=== PATIENT | female | born 1995 | race African-American/Black ===

== ENCOUNTER 2017-01-08 18:30 | Emergency (ER) | payer BC, MEDICAID ==
[2017-01-08] MEDS ORDERED: ACETAMINOPHEN 325 MG TABLET PO ONE (19:59)
--- NOTE | 2017-01-08 20:06 | ER Document Report ---
HPI - HPI Patient complains to provider of: right great toe pain Onset: This afternoon Onset/Duration: Sudden Severity: Severe Pain Level: 5 Context: Patient presents with right great toe pain. Patient reports she opened a door on her right great toe and the entire toenail lifted up. No other c/o such as f /v/d. Pt is 24 weeks pregant. Denies abd. pain. Associated Symptoms: None Exacerbated by: Movement, Walking Relieved by: Denies Similar symptoms previously: No Recently seen / treated by doctor: No - REPRODUCTIVE Reproductive: DENIES: : - DERM Skin Color: Normal, [place] Past Medical History - General Information source: Patient Last Menstrual Period: 24 weeks - Social History Smoking Status: Current Every Day Smoker Cigarette use (# per day): Yes Frequency of alcohol use: None Drug Abuse: None Occupation: student Family History: CVA Patient has suicidal ideation: No Patient has homicidal ideation: No - Medical History Medical History: Negative Endocrine Medical History: Denies: Hx Diabetes Mellitus Type 1, Hx Diabetes Mellitus Type 2, Hx Graves' Disease, Hx Hyperthyroidism, Hx Hypothyroidism Renal/ Medical History: Denies: Hx Peritoneal Dialysis Past Surgical History: Reports: Hx Abdominal Surgery - umbilical hernia repair, Hx Umbilical Hernia - Immunizations Immunizations up to date: Yes Hx Diphtheria, Pertussis, Tetanus Vaccination: Yes Vertical Provider Document - CONSTITUTIONAL Agree With Documented VS: Yes Exam Limitations: No Limitations General Appearance: WD/WN, Mild Distress - winces when toenail palpated - INFECTION CONTROL TRAVEL OUTSIDE OF THE [place] IN LAST 30 DAYS: No - HEENT HEENT: Atraumatic, Normocephalic - NECK Neck: Supple - RESPIRATORY Respiratory: No Respiratory Distress O2 Sat by Pulse Oximetry: 100 - CARDIOVASCULAR Cardiovascular: Regular Rate - MUSCULOSKELETAL/EXTREMETIES Musculoskeletal/Extremeties: MAEW, FROM, Tender - right great toenail ttp, blood underneath the nail, unable to pull the nail back, brisk cap refill - NEURO Level of Consciousness: Awake, Alert, Appropriate Motor/Sensory: No Motor Deficit - DERM Integumentary: Warm, Dry Adult Front & Back Diagram: 1 - great right toenail pain Course - Re-evaluation Re-evalutation: 01/08/17 20:08 Patient offered Tylenol but declines states she'll take it when she gets home. Patient reports she said she was allergic to tylenol because it doesn't do anything for her at all. 01/08/17 20:42 Xray negative. Patient instructed to protect toe, wear good supporting shoes follow up with primary care provider. Monitor for signs and symptoms of infection. Great toe cleaned well and dressed - Vital Signs Vital signs: Temp Pulse Resp BP Pulse Ox 98.5 F 83 16 112/66 100 01/08/17 19:19 01/08/17 19:19 01/08/17 19:19 01/08/17 19:19 01/08/17 19:19 - Diagnostic Test Radiology reviewed: Image reviewed, Reports reviewed - EXAM DESCRIPTION: TOE RIGHT COMPLETED DATE/TIME: 01/08/2017 8:19 pm REASON FOR STUDY: hit toe with door COMPARISON: None. NUMBER OF VIEWS: Three views. TECHNIQUE: AP, lateral, and oblique images acquired of the right first toe. LIMITATIONS: None. FINDINGS: MINERALIZATION: Normal. BONES: No acute fracture or dislocation. No worrisome bone lesions. JOINTS: No effusions. SOFT TISSUES: No soft tissue swelling. No foreign body. OTHER: No other significant finding. COMMENT: SITE OF TRAUMA/COMPLAINT MARKED/STAMP COMPLETED: No TECHNICAL DOCUMENTATION: JOB ID: [id number]- All Rights Reserved RAD/TOE RIGHT IMPRESSION: NEGATIVE STUDY OF THE RIGHT TOE. NO RADIOGRAPHIC EVIDENCE OF ACUTE INJURY Discharge - Discharge Clinical Impression: right great toenail pain Condition: Stable Disposition: HOME, SELF-CARE Additional Instructions: *You have been evaluated for great toenail pain *Keep the toe protected, wear good supporting shoes *Rest/Ice/Elevate the foot *Take tylenol as indicated for pain *Follow up with your primary care provider for recheck within one week * Monitor for signs and symptoms of infection such as redness swelling warmth or discharge increased pain. *Return to ED for worsening condition, changes, needs Forms: Return to School Referrals: KELSI DE LUNA MD [Primary Care Provider] - Follow up as needed
[2017-01-09 00:40] VITALS: BP 112/68
== END 2017-01-08 20:51 | disposition home or self-care (01) ==
LOC: ER 18:30
DX: O26.92 Pregnancy related conditions, unspecified, second trimester (principal); M79.674 Pain in right toe(s); W20.8XXA Other cause of strike by thrown, projected or falling object, initial encounter; O99.332 Smoking (tobacco) complicating pregnancy, second trimester; F17.210 Nicotine dependence, cigarettes, uncomplicated; Z3A.24 24 weeks gestation of pregnancy
CPT/HCPCS: 99283

== ENCOUNTER 2017-04-23 08:32 | Outpatient (CLI) | payer BC, MEDICAID ==
[2017-04-23 09:06] LABS: APPEARANCE,URINE CLEAR; BILIRUBIN,URINE NEGATIVE (NEGATIVE); GLUCOSE, URINE NEGATIVE (NEGATIVE); KETONES,URINE NEGATIVE (NEGATIVE); LEUKOCYTE ESTERASE,URINE NEGATIVE (NEGATIVE); NITRITE,URINE NEGATIVE (NEGATIVE); PROTEIN,URINE NEGATIVE (NEGATIVE); URINE SPECIFIC GRAVITY 1.017; UROBILINOGEN,URINE NEGATIVE mg/dL (<2.0)
[2017-04-23 09:16] LABS: AMNISURE (ROM) NEGATIVE (NEGATIVE)
[2017-04-23 09:34] LABS: URINE BARBITURATES SCREEN NEGATIVE; URINE METHADONE SCREEN NEGATIVE; URINE OPIATES LOW NEGATIVE; URINE PHENCYCLIDINE SCREEN NEGATIVE
--- NOTE | 2017-04-23 11:11 | RADIOLOGY REPORT (SQ) ---
EXAM DESCRIPTION: U/S PROFILE W/O STRESS COMPLETED DATE/TIME: 04/23/2017 11:01 am REASON FOR STUDY: BPP for non reactive NST COMPARISON: No previous this TECHNIQUE: Limited goldsmith-scale realtime and static images of the fetus to measure specified parameter s. LIMITATIONS: None. FINDINGS: HEART RATE: 140 beats per minute. ELANA: 8.5 cm cm. POSTURE AND TONE: 2 points. MOVEMENT: 2 points. BREATHING MOVEMENT: 2 points. QUALITATIVE ELANA: 2 points. OTHER: No other significant finding. IMPRESSION: BIOPHYSICAL PROFILE: 04/09. Trimester of : Third - 28 weeks to delivery COMMENT: BREATHING MOVEMENTS: 2 POINTS: PRESENT 0 POINTS: ABSENT MOTION: 2 POINTS: PRESENT 0 POINTS: ABSENT TONE: 2 POINTS: PRESENT 0 POINTS: ABSENT AMNIOTIC FLUID VOLUME: 2 POINTS: LARGEST POCKET GREATER THAN 2 CM DEPTH. 0 POINTS: NO POCKET OF 2 CM. TECHNICAL DOCUMENTATION: JOB ID: [id number] [employer]- All Rights Reserved
== END 2017-04-23 11:17 | disposition home or self-care (01) ==
LOC: LC 08:32
PROVIDERS: ATTEND Obstetrics & Gynecology
PROC: 4A1HXCZ Monitoring of Products of Conception, Cardiac Rate, External Approach (ICD-10-PCS; principal; 2017-04-23)
DX: Z36 Encounter for antenatal screening of mother (principal); Z3A.38 38 weeks gestation of pregnancy
CPT/HCPCS: 59025; 76819; 80307; 81005; 84112

== ENCOUNTER 2017-05-04 13:46 | Inpatient (IN) | payer BC, MEDICAID ==
--- NOTE | 2017-05-04 14:07 | Non Stress Test Report ---
Non Stress Test Datetime Report Generated by CPN: 05/04/2017 14:07 DEMOGRAPHIC EGA NST: 38.2 INDICATION Indication for Study: Ordered by Provider MONITORING Monitor Explained: Monitor Explained; Test Explained; Patient Verbalized Understanding Time on Monitor: 04/23/2017 08:47 Time off Monitor: 04/23/2017 10:25 NST Duration: 98 NST INTERVENTIONS NST Interventions: For Biophysical Profile Physician Notified NST: Dr. Michael BABY A: [id number] BABY A Movement : Present Contraction Frequency : occasional FHR Baseline : 145 Accelerations : 10X10 Decelerations : None Variability : Moderate 6-25bpm NST Review: Does Not Meet Criteria for Reactive NST NST Review and Verified By : Channing Turcios RN NST Results: Non-Reactive NST COMMENTS NST Comments: patient sent for BPP, BPP 8/8 NST REPORT Report Trigger: Send Report
[2017-05-04 14:27] LABS: APPEARANCE,URINE CLEAR; BILIRUBIN,URINE NEGATIVE (NEGATIVE); GLUCOSE, URINE NEGATIVE (NEGATIVE); KETONES,URINE NEGATIVE (NEGATIVE); LEUKOCYTE ESTERASE,URINE NEGATIVE (NEGATIVE); NITRITE,URINE NEGATIVE (NEGATIVE); PROTEIN,URINE NEGATIVE (NEGATIVE); URINE SPECIFIC GRAVITY 1.006; UROBILINOGEN,URINE NEGATIVE mg/dL (<2.0)
[2017-05-04 14:48] LABS: URINE BARBITURATES SCREEN NEGATIVE; URINE METHADONE SCREEN NEGATIVE; URINE OPIATES LOW NEGATIVE; URINE PHENCYCLIDINE SCREEN NEGATIVE
[2017-05-04] MEDS ORDERED: PENICILLIN G-K 5 MILLION UNIT VIAL ONE ×3 (15:56→23:36)
[2017-05-04] MEDS ORDERED: PENICILLIN G POTASSIUM 5,000,000 UNIT in DEXTROSE 5%-WATER 100 ML IV ONE (16:00)
[2017-05-04] MEDS: RINGERS SOLUTION,LACTATED 1,000 ML IV PRN ×2 (16:05→18:58)
[2017-05-04 16:10] LABS: ABSOLUTE LYMPHOCYTES (AUTO) 1.6 10^3/uL (0.5-4.7); ABSOLUTE MONOCYTES (AUTO) 0.7 10^3/uL (0.1-1.4); ABSOLUTE NEUT (AUTO) 7.1 10^3/uL (1.7-8.2); BASOPHILS % (AUTO) 0.2 % (0-2); EOSINOPHILS % (AUTO) 0.2 % (0-6); HEMATOCRIT 36.2 % (36.0-47.0); HEMOGLOBIN 12.2 g/dL (12.0-15.5); HGB HCT DIFFERENCE 0.4; MEAN CORPUSCULAR HEMOGLOBIN 30.4 pg (27.0-33.4); MEAN CORPUSCULAR HGB CONC 33.8 g/dL (32.0-36.0); MEAN CORPUSCULAR VOLUME 90 fl (80-97); MONOCYTES % (AUTO) 7.1 % (3-13); RED BLOOD COUNT 4.03 10^6/uL (3.72-5.28); RED CELL DISTRIBUTION WIDTH 13.3 % (11.5-14.0); SEGMENTED NEUTROPHILS % (AUTO) 75.5 % (42-78); WHITE BLOOD COUNT 9.4 10^3/uL (4.0-10.5)
[2017-05-04] MEDS ORDERED: OXYTOCIN/NORMAL SALINE 20 UNIT/1,000 ML RTUINJ IV PRN (17:23)
[2017-05-04] MEDS ORDERED: OXYTOCIN/NORMAL SALINE 20 UNIT/1,000 ML RTUINJ ONE ×2 (17:27→23:36)
[2017-05-04] MEDS ORDERED: NALBUPHINE HCL INJ 10 MG/1 ML AMPULE IV PRN (18:43)
[2017-05-04] MEDS ORDERED: ONDANSETRON HCL INJ/PF 4 MG/2 ML SDV ONE (20:22)
[2017-05-04] MEDS ORDERED: NALBUPHINE HCL INJ 10 MG/1 ML AMPULE ONE (20:22)
[2017-05-04] MEDS: PENICILLIN G POTASSIUM 2,500,000 UNIT in DEXTROSE 5%-WATER 50 ML IV SCH ×2 (20:29→23:53)
[2017-05-04] MEDS ORDERED: NALBUPHINE HCL INJ 10 MG/1 ML AMPULE INJ ONE (20:41)
[2017-05-04] MEDS ORDERED: ONDANSETRON HCL INJ/PF 4 MG/2 ML SDV IV ONE (20:41)
[2017-05-04] MEDS ORDERED: MISOPROSTOL 0.2 MG TABLET ONE (23:36)
[2017-05-04] MEDS ORDERED: LIDOCAINE 1% INJ-PF (10 MG/ML) 30 ML SDV ONE (23:36)
[2017-05-05] MEDS ORDERED: EPHEDRINE SULFATE INJ 50 MG/1 ML AMPULE ONE (01:50)
[2017-05-05] MEDS ORDERED: FENTANYL/BUPIVACAINE/NS/PF 200 MCG/100 ML RTUINJ EPI ONE ×2 (01:51→09:40)
[2017-05-05] MEDS ORDERED: BUPIVACAINE HCL 0.25 % INJ/PF (2.5 MG/1 ML) 30 ML VIAL ONE (01:51)
[2017-05-05] MEDS ORDERED: FENTANYL CITRATE INJ/PF 100 MCG/2 ML AMPUL ONE (01:52)
[2017-05-05] MEDS ORDERED: PENICILLIN G-K 5 MILLION UNIT VIAL ONE ×3 (04:22→11:54)
[2017-05-05] MEDS: PENICILLIN G POTASSIUM 2,500,000 UNIT in DEXTROSE 5%-WATER 50 ML IV SCH ×4 (07:26→15:01)
[2017-05-05] MEDS: RINGERS SOLUTION,LACTATED 1,000 ML IV PRN (07:27)
[2017-05-05] MEDS ORDERED: MISOPROSTOL 0.2 MG TABLET PR PRN (10:28)
[2017-05-05] MEDS ORDERED: OXYTOCIN/NORMAL SALINE 20 UNIT/1,000 ML RTUINJ IV PRN ×2 (10:28→15:16)
[2017-05-05] MEDS ORDERED: LIDOCAINE 1% INJ-PF (10 MG/ML) 30 ML SDV INJ PRN (10:28)
[2017-05-05] MEDS ORDERED: METHYLERGONOVINE MALEATE INJ/PF 0.2 MG/1 ML AMPULE ONE (14:50)
[2017-05-05] MEDS ORDERED: MEASLES,MUMPS&RUBELLA VACC/PF 0.5 ML VIAL SUBCUT PRN (15:16)
[2017-05-05] MEDS ORDERED: BENZOCAINE/MENTHOL AEROSOL SPRAY 56 ML TOP PRN (15:16)
[2017-05-05] MEDS ORDERED: ACETAMINOPHEN WITH CODEINE #3 TABLET PO PRN (15:16)
[2017-05-05] MEDS ORDERED: DIPH/PERTUSS(ACELL)/TETANUS VAC/PF 0.5 ML SYR (>=10YO) IM PRN (15:16)
[2017-05-05] MEDS ORDERED: DIBUCAINE 1% OINTMENT 28 GM TP PRN (15:16)
[2017-05-05] MEDS ORDERED: ZOLPIDEM TARTRATE 5 MG TABLET PO PRN (15:16)
[2017-05-05] MEDS ORDERED: METHYLERGONOVINE MALEATE INJ/PF 0.2 MG/1 ML AMPULE IM ONE (15:39)
--- NOTE | 2017-05-05 16:57 | Admission Physical ---
Datetime Report Generated by CPN: 05/05/2017 16:56 CURRENT ADMISSION Chief Complaint: Uterine Contractions; Suspected Ruptured Membranes Indication for Induction: PROM Admit Plan: Admit to Unit; Initiate Labor Protocol ALLERGIES Medication Allergies: No Medication Allergies: No Known Allergies (05/04/2017) Medication Allergies: acetaminophen (04/23/2017); ibuprofen (04/23/2017) Medication Allergies: acetaminophen (11/30/2015); ibuprofen (11/30/2015) Latex: No Latex Allergies Food Allergies: None Environmental Allergies: None OBSTETRICAL HISTORY EDC: 05/05/2017 00:00 : 2 Para: 0 Term: 0 : 0 SAB: 1 IAB: 0 Ectopic: 0 Livin Cesareans: 0 VBACs: 0 Multiple Births: 0 Gestational Diabetes: No Rh Sensitization: No Incompetent Cervix: No FIDEL: No Infertility: No ART Treatment: No Uterine Anomaly: No IUGR: No Hx Previous C/S: No Macrosomia: No Hx Loss/Stillborn: No PIH: No Hx : No Placenta Previa/Abruption: No Depression/PP Depression: No PTL/PROM: No Post Hemorrhage: No Current Procedures: Ultrasound Obstetrical History Comments: G1 - SAB G2 - Current SEE RECORDS Alcohol: No Marijuana : No Cocaine: No Other Illicit Drugs: No Cigarettes: Current Some Day Smoker. 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 Surgery: No Heart Disease: No Hosp/Surgery: Yes Autoimmune Disorder: No Anesthetic Complications: No Kidney Disease: No Abnormal Pap Smear: No Neuro/Epilepsy: No Psychiatric Disorders: No Other Medical Diseases: No Hepatitis/Liver Disease: No Significant Family History: No Varicosities/Phlebitis: No Trauma/Violence : No Thyroid Dysfunction: No Medical History Comments: Hernia repair w/ mesh as child INFECTIOUS HISTORY Gonorrhea: No Genital Herpes: No Chlamydia: No Tuberculosis: No Syphilis: No Hepatitis: No HIV/AIDS Exposure: No Rash or Viral Illness: No HPV: No PHYSICAL EXAM General: Normal HEENT: Normal Neurologic: Normal Thyroid: Normal Heart: Normal Lungs: Normal Breast: Deferred Back: Normal Abdomen: Normal Genitourinary Exam: Normal Extremities: Normal DTRs: Normal Pelvic Type: Adequate Vital Signs: Reviewed VAGINAL EXAM Dilatation: 4 Effacement: 60 Station: -2 MEMBRANES Membranes: Ruptured Amniotic Fluid Color: Clear FETUS A EGA: 39.6 Monitoring: External US FHR- Baseline: 145 Variability: Minimal - Undetectable to <=5bpm Accelerations: 15X15 Decelerations: None FHR Category: Category II Presentation: Vertex Admit Comment: 22yo at 39+6ega presents for uterine ctx and was being monitored due to decreased varibility of FHRT. Pt then PROM at 1540. Clear fluid. GBS pos. PCN for GBS prophy. Admit to L_D and augment labor/IOL with pitocin. Anticpate . Pelvis adequate for RODERICK. PLANS FOR LABOR AND DELIVERY Labor and Delivery: None Pain Management: Natural Feeding Preference: Breast Benefit of Breast Feed Discussed: Yes Circumcision: Yes INFORMED CONSENT Informed Consent Obtained: Vaginal Delivery; Risks, Benefits and Alternatives Discussed Signature: with User ID: [email or web address]
[2017-05-05] MEDS: FERROUS SULFATE 325 MG TABLET PO SCH (17:41)
[2017-05-05] MEDS: DOCUSATE SODIUM 100 MG CAPSULE PO SCH (17:41)
[2017-05-05] MEDS: ACETAMINOPHEN WITH CODEINE #3 TABLET PO PRN ×2 (17:42→22:09)
[2017-05-05] MEDS: IBUPROFEN 800 MG TABLET PO SCH (22:08)
[2017-05-05] MEDS ORDERED: DIPHENHYDRAMINE HCL 50 MG/ML VIAL INJ ONE (23:30)
[2017-05-06] MEDS ORDERED: ZOLPIDEM TARTRATE 5 MG TABLET PO ONE (00:30)
[2017-05-06] MEDS: IBUPROFEN 800 MG TABLET PO SCH ×3 (05:41→22:27)
[2017-05-06 07:34] LABS: HEMATOCRIT 26.8 % (36.0-47.0); HGB HCT DIFFERENCE 0.5; MEAN CORPUSCULAR HEMOGLOBIN 30.3 pg (27.0-33.4); MEAN CORPUSCULAR HGB CONC 34.1 g/dL (32.0-36.0); MEAN CORPUSCULAR VOLUME 89 fl (80-97); RED BLOOD COUNT 3.02 10^6/uL (3.72-5.28); RED CELL DISTRIBUTION WIDTH 13.6 % (11.5-14.0); WHITE BLOOD COUNT 12.8 10^3/uL (4.0-10.5)
[2017-05-06 07:36] LABS: HEMOGLOBIN 9.1 g/dL (12.0-15.5)
--- NOTE | 2017-05-06 09:18 | PDOC PROGRESS REPORT ---
Subjective-OB Subjective: Post Delivery Day: 1 22 year old. Denies any needs at this time, lochia is stable, pain well controlled, voiding without difficulty. Physical Exam (OB) Vital Signs: Temp Pulse Resp BP Pulse Ox 98.0 F 69 18 128/80 H 100 05/06/17 07:23 05/06/17 07:23 05/06/17 07:23 05/06/17 07:23 05/06/17 07:23 Intake & Output 05/05/17 05/06/17 05/07/17 06:59 06:59 06:59 Output Total 1 Balance -1 Weight 64.85 kg - Lochia Lochia Amount: Small 10-25 ml Lochia Color: Rubra/Red - Abdomen Description: Tender, Soft, Flat Hernia Present: No Fundal Description: Firm, Midline Fundal Height: u/u - u/2 Objective-Diagnostic Laboratory: 05/06/17 07:20 05/06/17 07:20 WBC 12.8 H RBC 3.02 L Hgb 9.1 L D Hct 26.8 L MCV 89 MCH 30.3 MCHC 34.1 RDW 13.6 Plt Count 166 Assessment and Plan(PN) - Assessment and Plan (1) Vaginal delivery Is this a current diagnosis for this admission?: Yes Plan: routine pp care (2) Acute blood loss anemia Is this a current diagnosis for this admission?: Yes Plan: ferrous sulfate increase dietary iron - Time Spent with Patient Time with patient: Less than 15 minutes Critical Time spent with patient: Less than 15 minutes Medications reviewed and adjusted accordingly: Yes - Disposition Anticipated Discharge: Home Within: within 24 hours
[2017-05-06] MEDS: DOCUSATE SODIUM 100 MG CAPSULE PO SCH ×2 (09:41→17:42)
[2017-05-06] MEDS: FERROUS SULFATE 325 MG TABLET PO SCH ×2 (09:41→17:43)
[2017-05-06] MEDS: PRENATAL VITAMIN W-O CA NO5/FE FUMARATE/FA CAPSULE PO SCH (09:41)
[2017-05-06] MEDS: SENNOSIDES/DOCUSATE 8.6-50 MG 1 EACH TABLET PO SCH (09:41)
[2017-05-06] MEDS ORDERED: ZOLPIDEM TARTRATE 5 MG TABLET PO SCH (22:00)
[2017-05-07] MEDS: IBUPROFEN 800 MG TABLET PO SCH (05:09)
[2017-05-07] MEDS: FERROUS SULFATE 325 MG TABLET PO SCH (09:52)
[2017-05-07] MEDS: DOCUSATE SODIUM 100 MG CAPSULE PO SCH (09:52)
[2017-05-07] MEDS: PRENATAL VITAMIN W-O CA NO5/FE FUMARATE/FA CAPSULE PO SCH (09:52)
[2017-05-07] MEDS: SENNOSIDES/DOCUSATE 8.6-50 MG 1 EACH TABLET PO SCH (09:53)
--- NOTE | 2017-05-07 11:02 | PDOC DISCHARGE SUMMARY ---
Final Diagnosis Discharge Date: 05/07/17 - Final Diagnosis (1) Acute blood loss anemia Is this a current diagnosis for this admission?: Yes (2) Vaginal delivery Is this a current diagnosis for this admission?: Yes Discharge Data - Discharge Medication Home Medications: Pnv No.122/Iron/Folic Acid [ Multi Tablet] 1 tab PO DAILY 04/23/17 Docusate Sodium [Colace 100 mg Capsule] 100 mg PO BID #60 capsule 05/07/17 Ferrous Sulfate [Feosol 325 mg Tablet] 325 mg PO BID #60 tablet 05/07/17 Ibuprofen [Motrin 800 mg Tablet] 800 mg PO Q8HP PRN #30 tablet 05/07/17 Reason(s) for Admission: PROM Procedures: NST, Ultrasound Intrapartum Procedure(s): Spontaneous Vaginal Delivery Laceration-Degree: 1st - Diagnosis Test Laboratory: Temp Pulse Resp BP Pulse Ox 98.1 F 75 18 114/22 L 100 05/07/17 08:26 05/07/17 08:26 05/07/17 08:26 05/07/17 08:26 05/06/17 19:55 05/04/17 05/04/17 05/06/17 13:51 15:40 07:20 RBC 4.03 3.02 L Hgb 12.2 9.1 L D Hct 36.2 26.8 L Urine Opiates Screen NEGATIVE - Discharge information/Instructions Discharge Activity: Activity As Tolerated, Balance Activity w/Rest, No Lifting Over 10 Pounds, No Lifting/Push/Pulling, Pelvic Rest, Slowly Increase Activity, No tub bath Discharge Diet: Regular Disposition: HOME, SELF-CARE Follow up with: [facility] in: 4, Weeks
[2017-05-07 11:22] VITALS: BP 114/72
--- NOTE | 2017-05-09 11:25 | Delivery Summary ---
Del Sum A-C Datetime Report Generated by CPN: 05/09/2017 11:25 DELIVERY PERSONNEL DELIVERY PERSONNEL: [id number] Delivery Doctor:: Srinivasa Cassidy, DO Labor and Delivery Nurse:: Samra Chacon RNcommunications strategist Nurse:: Tana Turner RN Nursery Nurse:: JEREMY Logan Air Intelligence Officer/MANAGER APPLICATION: Marylu MichaelBeekom, TIRE BUILDING SUPERVISOR MATERNAL INFORMATION Delivery Anesthesia: Epidural Medications After Delivery: Pitocin Bolus-Please Comment Meds After Delivery Comment: Pitocin 20 units in 1000mL NS Estimated Blood Loss (ml): 300 Maternal Complications: None Provider Comments: of viable male infant in OA position with hand across the face Placenta delievered spontaneous and intact with 3v cord Fundus firm after Methergine LABOR SUMMARY EDC: 05/05/2017 00:00 No. Babies in Womb: 1 Attempted: No Labor Anesthesia: Epidural LABOR INFORMATION Reason for Induction: Not Applicable Onset of Labor: 05/04/2017 05:00 Complete Dilatation: 05/05/2017 12:32 Oxytocin: Augmentation Group B Beta Strep: Positive Antibiotics # of Doses: 6 Antibiotics Time of Last Dose: 1200 Name of Antibiotic Given: PCN Steroids Given: None Reason Steroids Not Administered: Not Applicable MEMBRANES Membranes Rupture Method: Spontaneous Rupture of Membranes: 05/04/2017 15:40 Length of Rupture (hr): 23.02 Amniotic Fluid Color: Clear Amniotic Fluid Amount: Small Amniotic Fluid Odor: Normal STAGES OF LABOR Stage 1 hr: 31 Stage 1 min: 32 Stage 2 hr: 2 Stage 2 min: 9 Stage 3 hr: 0 Stage 3 min: 3 Total Time in Labor hr: 33 Total Time in Labor min: 44 VAGINAL DELIVERY Episiotomy: None Laceration Extension: First Degree Laceration Type: Vaginal Laceration Repair: Yes Laceration Repair Note: b/l vaginal lacs repaired with 3-0 chromic in useul fashion with good hemostasis Sponge Count Correct: Yes Sharps Count Correct: Yes CSECTION DELIVERY Primary Indication: N/A Secondary Indication: N/A CSection Urgency: N/A CSection Incidence: N/A Labor: N/A Elective: N/A CSection Incision: N/A BABY A INFORMATION Delivery Date/Time: 05/05/2017 14:41 Method of Delivery: Vaginal Born in Route : No : N/A Forceps: N/A Vacuum Extraction: N/A Shoulder Dystocia : No PRESENTATION/POSITION BABY A Presentation: Cephalic Presentation: Cephalic Presentation: Cephalic Presentation: Cephalic Cephalic Presentation: Vertex Vertex Position: Right Occipital Anterior Breech Presentation: N/A PLACENTA INFORMATION BABY A Placenta Delivery Time : 05/05/2017 14:44 Placenta Method of Delivery: Spontaneous Placenta Status: Delivered SCORES BABY A Heart Rate 1 min: >100 bpm Resp Effort 1 min: Good Cry Reflex Irritability 1 min: Cough or Sneeze or Pulls Away Muscle Tone 1 min: Active Motion Color 1 min: Body [place], Extremities Blue Resuscitation Effort 1 min: Tactile Stimulation SCORE 1 MIN: 9 Heart Rate 5 min: >100 bpm Resp Effort 5 min: Good Cry Reflex Irritability 5 min: Cough or Sneeze or Pulls Away Muscle Tone 5 min: Active Motion Color 5 min: Body [place], Extremities Blue SCORE 5 MIN: 9 INFORMATION BABY A Gestational Age at Delivery: 40.0 Gestational Status: Full Term- 39- 40.6 Weeks Outcome : Liveborn Condition : Stable Infant Sex: Male IDENTIFICATION BABY A Verification Date/Time: 05/05/2017 15:48 ID Band Number: [id number] Mother's Name Verified: Yes Infant RN Verifying : AElliott Oswaldo RN Additional Verifying Personnel: H. Johnny RN CORD INFORMATION BABY A No. Cord Vessels: 3 Nuchal Cord : N/A Cord Blood Taken: Yes-For Storage (Mom's Blood type +) Suction: Mouth; Nose ASSESSMENT BABY A Complications: Decreased Variability; Multiple Late Decels; Multiple Variable Decels Physical Findings at Delivery: Within Normal Limits; Caput Succedaneum; Molding of the Head Infant Respirations: Appears Normal Skin to Skin: Yes Skin to Skin Time (min): 60 Pupil Personnel Worker/ALS Called : No Care By: Linda Reilly RN Transferred To: Remains with Mother BABY B INFORMATION : N/A SIGNATURES Signature: with User ID: [email or web address]
== END 2017-05-07 15:33 | disposition home or self-care (01) | DRG 775 ==
LOC: LC 13:46 → LR 14:56 → 2N 05-05 16:45
PROVIDERS: ADMIT Student in an Organized Health Care Education/Training Program; ATTEND Student in an Organized Health Care Education/Training Program
PROC: 4A1HXCZ Monitoring of Products of Conception, Cardiac Rate, External Approach (ICD-10-PCS; 2017-05-04)
PROC: 10E0XZZ Delivery of Products of Conception, External Approach (ICD-10-PCS; principal; 2017-05-05)
PROC: 0HQ9XZZ Repair Perineum Skin, External Approach (ICD-10-PCS; 2017-05-05)
DX: O99.824 Streptococcus B carrier state complicating childbirth (principal); D62 Acute posthemorrhagic anemia; O99.02 Anemia complicating childbirth; O42.02 Full-term premature rupture of membranes, onset of labor within 24 hours of rupture; O70.0 First degree perineal laceration during delivery; O99.334 Smoking (tobacco) complicating childbirth; F17.210 Nicotine dependence, cigarettes, uncomplicated; O76 Abnormality in fetal heart rate and rhythm complicating labor and delivery; Z88.6 Allergy status to analgesic agent; Z3A.40 40 weeks gestation of pregnancy; Z37.0 Single live birth
CPT/HCPCS: 36415; 80307; 81005; 85025; 85027; 86592; 86850; 86900; 86901; 94760; J1200; J2210; J2300; J2405; J2540; J2590; J3010; J3490

== ENCOUNTER 2018-09-09 20:23 | Emergency (ER) | payer BC, MEDICAID ==
[2018-09-09] MEDS ORDERED: CEPHALEXIN 500 MG CAPSULE PO ONE (21:29)
[2018-09-09] MEDS ORDERED: DEXAMETHASONE SOD PHOS INJ 10 MG/1 ML VIAL IM ONE (21:29)
[2018-09-09] MEDS ORDERED: IBUPROFEN 400 MG TABLET PO ONE (21:31)
--- NOTE | 2018-09-09 21:33 | ER Document Report ---
HPI - HPI Patient complains to provider of: sore throat Time Seen by Provider: 09/09/18 21:29 Pain Level: 5 Context: Patient is a 23-year-old female that comes to the emergency department for chief complaint of sore throat for the past week. She states that it has gotten worse, has not resolved. She denies fever. Denies cough or congestion. Denies abdominal pain, chest pain, shortness of breath, headache. Past medical history of strep throat. Takes no daily medications, denies any medical history, LMP within the past month. - REPRODUCTIVE Reproductive: DENIES: : - DERM Skin Color: Normal Past Medical History - General Information source: Patient - Social History Smoking Status: Never Smoker Frequency of alcohol use: None Drug Abuse: None Lives with: Family Family History: Reviewed & Not Pertinent, CVA Patient has suicidal ideation: No Patient has homicidal ideation: No Endocrine Medical History: Denies: Hx Diabetes Mellitus Type 1, Hx Diabetes Mellitus Type 2, Hx Graves' Disease, Hx Hyperthyroidism, Hx Hypothyroidism Renal/ Medical History: Denies: Hx Peritoneal Dialysis Past Surgical History: Reports: Hx Abdominal Surgery - umbilical hernia repair, Hx Umbilical Hernia - Immunizations Immunizations up to date: Yes Hx Diphtheria, Pertussis, Tetanus Vaccination: Yes Vertical Provider Document - CONSTITUTIONAL General Appearance: WD/WN, No Apparent Distress - INFECTION CONTROL TRAVEL OUTSIDE OF THE [place] IN LAST 30 DAYS: No - HEENT HEENT: Atraumatic, Normocephalic. negative: Normal ENT Exam - Exudative pharyngitis, uvula normal, airway patent, no evidence of abscess. Normal sinus, nasal, and ear exams. Unremarkable ENT exam otherwise. - NECK Neck: Other - Bilateral anterior cervical adenopathy. - RESPIRATORY Respiratory: Breath Sounds Normal, No Respiratory Distress - CARDIOVASCULAR Cardiovascular: Regular Rate, Regular Rhythm - GI/ABDOMEN Gastrointestinal: Abdomen Soft, Abdomen Non-Tender - MUSCULOSKELETAL/EXTREMETIES Musculoskeletal/Extremeties: MAEW, FROM, Non-Tender - NEURO Level of Consciousness: Awake, Alert, Appropriate - DERM Integumentary: Warm, Dry, No Rash Course - Re-evaluation Re-evalutation: Patient meets 3 of 4 criteria for strep. Declines rapid strep test. No splenomegaly noted on exam. Examination is consistent with strep pharyngitis. Treated with dexamethasone, cephalexin. Discussed follow-up and return precautions. Patient states understanding and agreement. - Vital Signs Vital signs: Temp Pulse Resp BP Pulse Ox 98.8 F 83 20 111/74 100 09/09/18 20:32 09/09/18 20:32 09/09/18 20:32 09/09/18 20:32 09/09/18 20:32 Discharge - Discharge Clinical Impression: Exudative pharyngitis, Lymphadenopathy Condition: Stable Disposition: HOME, SELF-CARE Additional Instructions: Your evaluation meets the criteria for strep throat. Take antibiotics as prescribed to completion. Take Tylenol or ibuprofen for pain if needed. Drink plenty fluids. Rest. This is contagious, follow contact precautions. Follow-up with primary care. Return for any concerning or worsening symptoms including difficulty breathing, difficulty swallowing, fevers/chills, increased swelling, etc. Prescriptions: Cephalexin Monohydrate [Keflex 500 mg Capsule] 500 mg PO BID 10 Days #20 capsule Forms: Return to Work
[2018-09-09 21:44] VITALS: BP 120/82
== END 2018-09-09 21:49 | disposition home or self-care (01) ==
LOC: ER 20:23
DX: J02.9 Acute pharyngitis, unspecified (principal); R59.1 Generalized enlarged lymph nodes
CPT/HCPCS: 99282; 96372; J3490; J1100

== ENCOUNTER 2018-09-16 18:36 | Emergency (ER) | payer BC ==
[2018-09-16] MEDS ORDERED: NORMAL SALINE 1000 ML 1,000 ML IV ONE ×2 (19:42→22:44)
[2018-09-16] MEDS ORDERED: ONDANSETRON HCL INJ/PF 4 MG/2 ML SDV IV ONE (19:42)
--- NOTE | 2018-09-16 19:42 | ER Document Report ---
ED Medical Screen (RME) - General Chief Complaint: Nausea/Vomiting/Diarrhea Stated Complaint: VOMITING,DIARRHEA Time Seen by Provider: 09/16/18 19:32 Notes: 23-year-old female to the emergency department complaining of nausea, vomiting, diarrhea, abdominal pain, body aches and generally not feeling well. Was seen here a few days ago for the same. I have greeted and performed a rapid initial assessment of this patient. A comprehensive ED assessment and evaluation of the patient, analysis of test results and completion of the medical decision making process will be conducted by additional ED providers. TRAVEL OUTSIDE OF THE [place] IN LAST 30 DAYS: No - Related Data Allergies/Adverse Reactions: acetaminophen [From Tylenol-Codeine #3] Allergy (Verified 07/05/17 20:13) codeine [From Tylenol-Codeine #3] Allergy (Verified 07/05/17 20:13) Past Medical History - Social History Frequency of alcohol use: None Drug Abuse: None Endocrine Medical History: Denies: Hx Diabetes Mellitus Type 1, Hx Diabetes Mellitus Type 2, Hx Graves' Disease, Hx Hyperthyroidism, Hx Hypothyroidism Renal/ Medical History: Denies: Hx Peritoneal Dialysis Past Surgical History: Reports: Hx Abdominal Surgery - umbilical hernia repair, Hx Umbilical Hernia - Immunizations Immunizations up to date: Yes Hx Diphtheria, Pertussis, Tetanus Vaccination: Yes Physical Exam - Vital signs Vitals: Temp Pulse Resp BP Pulse Ox 97.5 F 75 20 98/51 L 100 09/16/18 18:48 09/16/18 18:48 09/16/18 18:48 09/16/18 18:48 09/16/18 18:48 Course - Vital Signs Vital signs: Temp Pulse Resp BP Pulse Ox 97.5 F 75 20 98/51 L 100 09/16/18 18:48 09/16/18 18:48 09/16/18 18:48 09/16/18 18:48 09/16/18 18:48
[2018-09-16 20:28] LABS: A TYPE INFLUENZA AG NEGATIVE (NEGATIVE); B INFLUENZA AG NEGATIVE (NEGATIVE)
[2018-09-16 21:02] LABS: HEMATOCRIT 43.7 % (36.0-47.0); HEMOGLOBIN 14.5 g/dL (12.0-15.5); MEAN CORPUSCULAR HEMOGLOBIN 29.7 pg (27.0-33.4); MEAN CORPUSCULAR HGB CONC 33.3 g/dL (32.0-36.0); MEAN CORPUSCULAR VOLUME 89 fl (80-97); PLATELET COUNT 287 10^3/uL (150-450); RED CELL DISTRIBUTION WIDTH 13.2 % (11.5-14.0); WHITE BLOOD COUNT 12.2 10^3/uL (4.0-10.5)
[2018-09-16 21:19] LABS: ALANINE AMINOTRANSFERASE 29 U/L (9-52); ALBUMIN 4.9 g/dL (3.5-5.0); ALKALINE PHOSPHATASE 89 U/L (38-126); ANION GAP 13 (5-19); ASPARTATE AMINO TRANSFERASE 37 U/L (14-36); BILIRUBIN,DIRECT 0.2 mg/dL (0.0-0.4); BILIRUBIN,TOTAL 0.7 mg/dL (0.2-1.3); BLOOD UREA NITROGEN 23 mg/dL (7-20); CARBON DIOXIDE 23 mmol/L (22-30); CHLORIDE 103 mmol/L (98-107); GLUCOSE 136 mg/dL (75-110); LIPASE 45.6 U/L (23-300); SODIUM 139.3 mmol/L (137-145); TOTAL PROTEIN 8.2 g/dL (6.3-8.2)
[2018-09-16 21:20] LABS: ABSOLUTE LYMPHOCYTES# (MANUAL) 0.6 10^3/uL (0.5-4.7); ABSOLUTE MONOCYTES # (MANUAL) 0.4 10^3/uL (0.1-1.4); ABSOLUTE NEUTROPHILS# (MANUAL) 11.2 10^3/uL (1.7-8.2); BASOPHILS % (MANUAL) 0 % (0-2); EOSINOPHILS % (MANUAL) 0 % (0-6); LYMPHOCYTES % (MANUAL) 5 % (13-45); MONOCYTES % (MANUAL) 3 % (3-13); SEGMENTED NEUTROPHILS % (MAN) 92 % (42-78); TOTAL CELLS COUNTED 100
[2018-09-16 21:21] LABS: PLATELET COMMENT ADEQUATE; TOXIC GRANULATION SLIGHT
[2018-09-16 22:10] LABS: APPEARANCE,URINE CLOUDY; BILIRUBIN,URINE NEGATIVE (NEGATIVE); COLOR,URINE YELLOW; GLUCOSE, URINE NEGATIVE (NEGATIVE); KETONES,URINE 80 mg/dL (NEGATIVE); LEUKOCYTE ESTERASE,URINE NEGATIVE (NEGATIVE); NITRITE,URINE NEGATIVE (NEGATIVE); PROTEIN,URINE 30 mg/dL (NEGATIVE); URINE SPECIFIC GRAVITY 1.028; UROBILINOGEN,URINE NEGATIVE mg/dL (<2.0)
[2018-09-16] MEDS ORDERED: PROMETHAZINE HCL INJ 25 MG/1 ML VIAL IV ONE (23:12)
[2018-09-16 23:36] LABS: BACTERIA (WET MOUNT) 3+ BACTERIA SEEN; RBCS (WET MOUNT) NO RBCS SEEN; T.VAGINALIS (WET MOUNT) NO TRICHOMONAS SEEN; WBCS (WET MOUNT) 1+ WBCS SEEN; YEAST (WET MOUNT) NO YEAST SEEN
[2018-09-17 00:59] LABS: CHLAM PCR DETECTED (NOT DETECT); GON PCR NOT DETECTED (NOT DETECT)
--- NOTE | 2018-09-17 01:10 | ER Document Report ---
ED General - General Chief Complaint: Nausea/Vomiting/Diarrhea Stated Complaint: VOMITING,DIARRHEA Time Seen by Provider: 09/16/18 19:32 Notes: Patient is a 23-year-old female presents to the emergency department for complaint of vomiting and diarrhea over the last 2 days. Patient states she has vomited upwards of 20 times and had diarrhea around 10 times denying blood in both. Patient states she also noted that she had a fever T-max 101.7 prior to coming to the emergency room. Patient states she was to this facility a few days ago for a sore throat, was placed on antibiotics and given steroids for same. Patient states she has been taking medications as prescribed. Patient is denying any abdominal pain along with her vomiting and diarrhea states she does not have any dysuria but does note some white malodorous vaginal discharge. Past medical history: None Medications: None Allergies: Tylenol, codeine TRAVEL OUTSIDE OF THE [place] IN LAST 30 DAYS: No - Related Data Allergies/Adverse Reactions: acetaminophen [From Tylenol-Codeine #3] Allergy (Verified 07/05/17 20:13) codeine [From Tylenol-Codeine #3] Allergy (Verified 07/05/17 20:13) Past Medical History - General Information source: Patient - Social History Smoking Status: Current Every Day Smoker Frequency of alcohol use: None Drug Abuse: None Family History: Reviewed & Not Pertinent, CVA Patient has suicidal ideation: No Patient has homicidal ideation: No Endocrine Medical History: Denies: Hx Diabetes Mellitus Type 1, Hx Diabetes Mellitus Type 2, Hx Graves' Disease, Hx Hyperthyroidism, Hx Hypothyroidism Renal/ Medical History: Denies: Hx Peritoneal Dialysis Past Surgical History: Reports: Hx Abdominal Surgery - umbilical hernia repair, Hx Umbilical Hernia - Immunizations Immunizations up to date: Yes Hx Diphtheria, Pertussis, Tetanus Vaccination: Yes Review of Systems - Review of Systems Constitutional: See HPI EENT: See HPI Cardiovascular: No symptoms reported Respiratory: No symptoms reported Gastrointestinal: See HPI Genitourinary: See HPI Female Genitourinary: See HPI Musculoskeletal: No symptoms reported Skin: No symptoms reported Hematologic/Lymphatic: No symptoms reported Neurological/Psychological: No symptoms reported Physical Exam - Vital signs Vitals: Temp Pulse Resp BP Pulse Ox 97.5 F 75 20 98/51 L 100 09/16/18 18:48 09/16/18 18:48 09/16/18 18:48 09/16/18 18:48 09/16/18 18:48 - Notes Notes: GENERAL: Alert, interacts well. No acute distress. HEAD: Normocephalic, atraumatic. EYES: Pupils equal, round, and reactive to light. Extraocular movements intact. ENT: Oral mucosa moist, tongue midline. Pharynx minorly erythematous, tonsils +2 bilaterally with no palatal petechiae or exudate noted. NECK: Full range of motion. Supple. Trachea midline. No lymphadenopathy appreciated LUNGS: Clear to auscultation bilaterally, no wheezes, rales, or rhonchi. No respiratory distress. HEART: Regular rate and rhythm. No murmur ABDOMEN: Soft, non-tender. Non-distended. Bowel sounds present in all 4 quadrants. No McBurney's point tenderness, no Turcios sign noted EXTREMITIES: Moves all 4 extremities spontaneously. No edema, normal radial and dorsalis pedis pulses bilaterally. No cyanosis. BACK: no cervical, thoracic, lumbar midline tenderness. No saddle anesthesia, normal distal neurovascular exam. No CVA tenderness bilaterally NEUROLOGICAL: Alert and oriented x3. Normal speech. cranial nerves II through XII grossly intact. PSYCH: Normal affect, normal mood. SKIN: Warm, dry, normal turgor. No rashes or lesions noted. Pelvic: White malodorous discharge noted in the cul-de-sac, no cervical motion tenderness, no right or left adnexal tenderness. Course - Re-evaluation Re-evalutation: Initially patient states the Zofran has not helped her nausea, states she vomited twice since administration. Patient is currently asking for something to drink. Discussed trying Phenergan prior to giving her anything else to drink. Patient is agreeable with plan. 09/17/18 Patient's labs did show leukocytosis of 12.2-year-old which could be elevated due to her vomiting. Labs showed no signs of anemia no electrolyte abnormalities. Patient's specific gravity was 1.028, with positive ketones, she was treated with 2 L of normal saline solution in the emergency no signs of urin elton tract infection. Patient's. Wet mount did reveal bacterial vaginosis. Discussed prophylactic treatment of gonorrhea and chlamydia with the patient at length. She wishes for prophylactic treatment at the emergency room. After Phenergan administration patient no longer feels nauseated is able to p.o. liquids with no more vomiting. Discussed following up with primary care provider and return precautions. 09/17/18 01:18 Upon discharge of patient it was found that her chlamydia did come back positive discussed this at length with patient at bedside. Patient was already prophylactically treated. - Vital Signs Vital signs: Temp Pulse Resp BP Pulse Ox 97.5 F 75 20 98/51 L 100 09/16/18 18:48 09/16/18 18:48 09/16/18 18:48 09/16/18 18:48 09/16/18 18:48 - Laboratory Result Diagrams: 09/16/18 20:40 09/16/18 20:40 Laboratory results interpreted by me: 09/16/18 09/16/18 09/16/18 20:40 20:40 21:55 WBC 12.2 H Seg Neuts % (Manual) 92 H Lymphocytes % (Manual) 5 L Abs Neuts (Manual) 11.2 H BUN 23 H Glucose 136 H AST 37 H Urine Protein 30 H Urine Ketones 80 H Urine Ascorbic Acid 40 H Chlamydia DNA (PCR) 09/16/18 23:20 WBC Seg Neuts % (Manual) Lymphocytes % (Manual) Abs Neuts (Manual) BUN Glucose AST Urine Protein Urine Ketones Urine Ascorbic Acid Chlamydia DNA (PCR) DETECTED H Discharge - Discharge Clinical Impression: Bacterial vaginosis, Chlamydia, Vomiting and diarrhea Condition: Stable Disposition: HOME, SELF-CARE Instructions: Vomiting ([facility]), Intravenous (IV) Fluids ([facility]), Diarrhea, Nonspe cific ([facility]), Antinausea Medication ([facility]), Vaginosis, Bacterial ([facility]), Chlamydia ([facility]) Additional Instructions: As we discussed you have been seen and treated in the emergency department for your vomiting, diarrhea and vaginal discharge. Please take antibiotics as prescribed. Please make sure you take antibiotics on a full stomach as if you take them on an empty stomach you may get nauseated. Please take antinausea medication as prescribed. Please follow-up with your primary care provider and return to the emergency room for any other concerning symptoms. Prescriptions: Metronidazole [Flagyl] 500 mg PO BID 7 Days #14 tablet Ondansetron [Zofran Odt 4 mg Tablet] 1 - 2 tab PO Q4H PRN #15 tab.rapdis PRN Reason: For Nausea/Vomiting
[2018-09-17] MEDS ORDERED: LIDOCAINE 1% INJ-PF (10 MG/ML) 30 ML SDV INJ ONE (01:14)
[2018-09-17] MEDS ORDERED: AZITHROMYCIN 250 MG TABLET PO ONE (01:14)
[2018-09-17] MEDS ORDERED: CEFTRIAXONE INJ 250 MG VIAL IM ONE (01:14)
[2018-09-17 01:43] VITALS: BP 111/64
== END 2018-09-17 01:40 | disposition home or self-care (01) ==
LOC: ER 18:36
DX: R11.2 Nausea with vomiting, unspecified (principal); A74.9 Chlamydial infection, unspecified; N76.0 Acute vaginitis; B96.89 Other specified bacterial agents as the cause of diseases classified elsewhere; R19.7 Diarrhea, unspecified; R50.9 Fever, unspecified; J02.9 Acute pharyngitis, unspecified; F17.200 Nicotine dependence, unspecified, uncomplicated; Z88.6 Allergy status to analgesic agent; Z88.5 Allergy status to narcotic agent; D72.829 Elevated white blood cell count, unspecified
CPT/HCPCS: 99284; 96372; 96361; 96374; 96375; 36415; 87210; 83690; 85025; 81025; 80053; 81001; 87491; 87591; 87804; J3490; J2550; J2405; J7030; J0696

== ENCOUNTER 2019-07-25 03:08 | Outpatient (CLI) | payer BC, MEDICAID ==
[2019-07-25] MEDS ORDERED: RINGERS SOLUTION,LACTATED 1,000 ML IV ONE (03:58)
[2019-07-25] MEDS ORDERED: HYDROXYZINE PAMOATE 50 MG CAPSULE PO ONE (03:58)
[2019-07-25] MEDS ORDERED: BETAMET ACET/BETAMET NA INJ 6 MG/1 ML IM ONE (04:00)
[2019-07-25 04:03] LABS: APPEARANCE,URINE SLIGHTLY-CLOUDY; BILIRUBIN,URINE NEGATIVE (NEGATIVE); COLOR,URINE YELLOW; GLUCOSE, URINE 50 mg/dL (NEGATIVE); KETONES,URINE NEGATIVE (NEGATIVE); LEUKOCYTE ESTERASE,URINE NEGATIVE (NEGATIVE); NITRITE,URINE NEGATIVE (NEGATIVE); PROTEIN,URINE NEGATIVE (NEGATIVE); UROBILINOGEN,URINE NEGATIVE mg/dL (<2.0)
[2019-07-25] MEDS ORDERED: BETAMET ACET/BETAMET NA INJ 6 MG/1 ML ONE (04:03)
[2019-07-25] MEDS ORDERED: HYDROXYZINE PAMOATE 50 MG CAPSULE ONE (04:04)
[2019-07-25 04:19] LABS: URINE AMPHETAMINES SCREEN NEGATIVE; URINE BARBITURATES SCREEN NEGATIVE; URINE BENZODIAZEPINES SCREEN NEGATIVE; URINE COCAINE SCREEN NEGATIVE; URINE METHADONE SCREEN NEGATIVE; URINE PHENCYCLIDINE SCREEN NEGATIVE
[2019-07-25 04:24] LABS: URINE MARIJUANA (THC) SCREEN UNCONFIRMED POSITIVE
--- NOTE | 2019-07-25 05:37 | Non Stress Test Report ---
Non Stress Test Datetime Report Generated by CPN: 07/25/2019 05:37 DEMOGRAPHIC EGA NST: 34.4 INDICATION Indication for Study (NST) Other: labor check URINE RESULTS Urine Protein, NST: Negative Urine Ketones - NST: Negative Urine Glucose - NST: Negative Urine Blood - NST: Negative MONITORING Monitor Explained: Monitor Explained; Test Explained; Patient Verbalized Understanding Time on Monitor: 07/25/2019 03:40 Time off Monitor: 07/25/2019 04:30 NST Duration: 50 NST INTERVENTIONS NST Interventions: PO Hydration; IV Fluids Physician Notified NST: Dr. Michael BABY A: [id number] BABY A Movement : Present Contraction Frequency : 4-6 FHR Baseline : 125 Accelerations : 15X15 Decelerations : None Variability : Moderate 6-25bpm NST Review: Meets Criteria for Reactive NST NST Results: Reactive NST REPORT Report Trigger: Send Report
== END 2019-07-25 05:27 | disposition home or self-care (01) ==
LOC: LC 03:08
PROVIDERS: ATTEND Obstetrics & Gynecology
PROC: 4A1HXCZ Monitoring of Products of Conception, Cardiac Rate, External Approach (ICD-10-PCS; principal; 2019-07-25)
DX: Z34.93 Encounter for supervision of normal pregnancy, unspecified, third trimester (principal)
CPT/HCPCS: 81001; 80307; 59025; J0702

== ENCOUNTER 2019-08-20 16:51 | Outpatient (CLI) | payer BC, MEDICAID ==
[2019-08-20 17:39] LABS: APPEARANCE,URINE SLIGHTLY-CLOUDY; BILIRUBIN,URINE NEGATIVE (NEGATIVE); COLOR,URINE YELLOW; GLUCOSE, URINE NEGATIVE (NEGATIVE); KETONES,URINE 80 mg/dL (NEGATIVE); LEUKOCYTE ESTERASE,URINE TRACE (NEGATIVE); NITRITE,URINE NEGATIVE (NEGATIVE); PROTEIN,URINE NEGATIVE (NEGATIVE); URINE SPECIFIC GRAVITY 1.019; UROBILINOGEN,URINE NEGATIVE mg/dL (<2.0)
[2019-08-20 17:54] LABS: URINE AMPHETAMINES SCREEN NEGATIVE; URINE BARBITURATES SCREEN NEGATIVE; URINE BENZODIAZEPINES SCREEN NEGATIVE; URINE COCAINE SCREEN NEGATIVE; URINE METHADONE SCREEN NEGATIVE; URINE PHENCYCLIDINE SCREEN NEGATIVE
[2019-08-20 18:02] LABS: URINE MARIJUANA (THC) SCREEN UNCONFIRMED POSITIVE
--- NOTE | 2019-08-20 19:16 | Non Stress Test Report ---
Non Stress Test Datetime Report Generated by CPN: 08/20/2019 19:16 DEMOGRAPHIC EGA NST: 38.2 MONITORING Monitor Explained: Monitor Explained; Test Explained; Patient Verbalized Understanding Time on Monitor: 08/20/2019 17:10 Time off Monitor: 08/20/2019 19:15 NST Duration: 125 NST INTERVENTIONS NST Interventions: None BABY A: [id number] BABY A Movement : Present Contraction Frequency : 5-6 FHR Baseline : 145 Decelerations : None NST Review: Meets Criteria for Reactive NST NST Review and Verified By : squinn NST Results: Reactive NST REPORT Report Trigger: Send Report
== END 2019-08-20 19:29 | disposition home or self-care (01) ==
LOC: LC 16:51
PROVIDERS: ATTEND Obstetrics & Gynecology
PROC: 4A1HXCZ Monitoring of Products of Conception, Cardiac Rate, External Approach (ICD-10-PCS; principal; 2019-08-20)
DX: O47.1 False labor at or after 37 completed weeks of gestation (principal); Z3A.38 38 weeks gestation of pregnancy
CPT/HCPCS: 81005; 80307; 84112; 59025; G0480 ×2; 80349

== ENCOUNTER 2019-08-27 03:53 | Emergency (ER) | payer BC, MEDICAID ==
[2019-08-27] MEDS ORDERED: LIDOCAINE 1% INJ-PF (10 MG/ML) 30 ML SDV INJ ONE (08:47)
--- NOTE | 2019-08-27 08:53 | ER Document Report ---
ED General - General Chief Complaint: Abscess Stated Complaint: ABSCESS IN VAGINAL AREA Time Seen by Provider: 08/27/19 08:02 Primary Care Provider: KELSI DE LUNA MD [Primary Care Provider] - Follow up in 3-5 days Notes: 24-year-old female presents with abscess on her left labia that started approximately 24 hours ago. Patient denies any fever or history of diabetes. Patient denies any drainage. Patient states she has had abscesses behind her ear previously that have had to be drained. Patient recently gave approximately 6 days ago with no complications. Patient is breast-feeding. Patient has minimal bleeding after delivery and uses 1-2 pads per day. TRAVEL OUTSIDE OF THE [place] IN LAST 30 DAYS: No - Related Data Allergies/Adverse Reactions: acetaminophen [From Tylenol-Codeine #3] Allergy (Verified 08/20/19 17:02) codeine [From Tylenol-Codeine #3] Allergy (Verified 08/20/19 17:02) Home Medications: motrin tid. anxiety med Past Medical History - Social History Smoking Status: Current Every Day Smoker Family History: Reviewed & Not Pertinent, CVA Patient has suicidal ideation: No Patient has homicidal ideation: No Endocrine Medical History: Denies: Hx Diabetes Mellitus Type 1, Hx Diabetes Mellitus Type 2, Hx Graves' Disease, Hx Hyperthyroidism, Hx Hypothyroidism Renal/ Medical History: Denies: Hx Peritoneal Dialysis Past Surgical History: Reports: Hx Abdominal Surgery - umbilical hernia repair, Hx Umbilical Hernia - Immunizations Immunizations up to date: Yes Hx Diphtheria, Pertussis, Tetanus Vaccination: Yes Review of Systems - Review of Systems Notes: Constitutional: Negative for fever. HENT: Negative for sore throat. Eyes: Negative for visual changes. Cardiovascular: Negative for chest pain. Respiratory: Negative for shortness of breath. Gastrointestinal: Negative for abdominal pain, vomiting or diarrhea. Genitourinary: Negative for dysuria. Musculoskeletal: Negative for back pain. Skin: Positive for abscess. Negative for rash. Neurological: Negative for headaches, weakness or numbness. 10 point ROS negative except as marked above and in HPI. Physical Exam - Vital signs Vitals: Temp Pulse Resp BP Pulse Ox 98.5 F 112 H 16 129/87 H 99 08/27/19 04:00 08/27/19 04:00 08/27/19 04:00 08/27/19 04:00 08/27/19 04:00 - Notes Notes: GENERAL: Well-appearing, well-nourished and in no acute distress. HEAD: Atraumatic, normocephalic. EYES: Extraocular movements intact, sclera anicteric, conjunctiva are normal. NECK: Normal range of motion, supple without lymphadenopathy or JVD. : Small abscess approx 3 cm noted to left thigh lateral to left labia, no drainage, mild erythema EXTREMITIES: Normal range of motion, no pitting or edema. No clubbing or cyanosis. NEUROLOGICAL: Cranial nerves II through XII grossly intact. Normal speech, normal gait. PSYCH: Normal mood, normal affect. SKIN: Warm, Dry, normal turgor, no rashes or lesions noted. Course - Re-evaluation Re-evalutation: 08/27/19 Abscess to left thigh near lateral to left labia. Afebrile. Mild erythema noted. Patient is nontoxic, well-appearing. Discussed possible I&D which patient agrees to. Reviewed nursing notes do not agree with abscess going to perineum. 08/27/19 10:32 I&D complete. Pt tolerated procedure well. Patient given prescription for Bactrim. Patient to follow-up in urgent care/ER for wound recheck in 48 hours. Strict return precautions given. Patient voices understanding and agrees with plan of care. - Vital Signs Vital signs: Temp Pulse Resp BP Pulse Ox 98.5 F 70 20 117/80 99 08/27/19 11:00 08/27/19 11:00 08/27/19 11:00 08/27/19 11:00 08/27/19 11:00 Procedures - Incision and Drainage Left Labia Type: Simple Anesthetic type: 1% Lidocaine mL's of anesthetic: 20 Blade size: 11 I&D procedure: Shurclens applied Incision Method: Incision made by scalpel Amount/type of drainage: 10 cc/purulent bloody Discharge - Discharge Clinical Impression: Abscess Condition: Stable Disposition: HOME, SELF-CARE Instructions: Abscess ([facility]), Trimethoprim-Sulfa ([facility]) Additional Instructions: Please take Bactrim as prescribed and finish all doses unless we call you to change it based off your wound culture. Please take out packing in 24 hours. Please follow-up in ER or urgent care for wound recheck in 48 hours. Please follow-up with your primary care doctor in 3 to 5 days. Return to ER for any worsening symptoms, including fever, worsening swelling, spreading redness, worsening pain, vomiting, or any other symptoms that are concerning to you. Prescriptions: Sulfamethoxazole/Trimethoprim [Bactrim Ds Tablet] 1 each PO BID #14 tablet Hydrocodone/Acetaminophen [Heartwell 5-325 mg Tablet] 1 tab PO Q6 #5 tablet Referrals: KELSI DE LUNA MD [Primary Care Provider] - Follow up in 3-5 days
[2019-08-27] MEDS ORDERED: HYDROCODONE/ACETAMINOPHEN 5-325 MG TABLET PO ONE (10:30)
[2019-08-27 11:00] VITALS: BP 117/80
== END 2019-08-27 11:20 | disposition home or self-care (01) ==
LOC: ER 03:53
DX: N76.4 Abscess of vulva (principal); F17.200 Nicotine dependence, unspecified, uncomplicated; Z88.6 Allergy status to analgesic agent
CPT/HCPCS: 99282; 87070; 87205; 87075; 87077; 87186; 56405; A6266; J3490